=== PATIENT | female | born 1975 | race Caucasian/White ===

== ENCOUNTER → 2018-06-15 | Outpatient (CLI) | payer OTHER ==
[~2018-06-15] MED LIST: ARMOUR THYROID PO; DOC100 PO; IRON PO; KET10 PO; MIL50PT PO; MULT-820 PO; PER PO; PREG300C14 PO; THYROID PO
== END ==
LOC: LAB 09:36
PROVIDERS: ATTEND Family Medicine
DX: R74.8 Abnormal levels of other serum enzymes (principal)
CPT/HCPCS: 36415; 84080